=== PATIENT | female | born 1985 | race Caucasian/White ===

== ENCOUNTER 2019-04-24 18:51 | Emergency (ER) | payer OTHER ==
[~2019-04-24] VITALS: Ht 157.5 cm; Wt 75.9 kg
[2019-04-24 18:56] VITALS: Ht 157.5 cm; Wt 75.9 kg
[2019-04-24] MEDS ORDERED: ZITHROMAX TRI-500 MG PO (18:57)
[2019-04-24] MEDS ORDERED: TOPAMAX50 MG PO (18:58)
[2019-04-24] MEDS ORDERED: ADIPEX-P37.5 MG PO (18:58)
[2019-04-24] MEDS ORDERED: BUTALB-APAP-CA1 EACH PO (18:59)
[2019-04-24] MEDS ORDERED: AMBIEN10 MG PO (18:59)
[2019-04-24] MEDS ORDERED: PROZAC40 MG PO (18:59)
[2019-04-24 20:01] LABS: APPEARANCE CLEAR (CLEAR); BILIRUBIN NEGATIVE (NEGATIVE); COLOR YELLOW (YELLOW); GLUCOSE NEGATIVE (NEGATIVE); KETONE NEGATIVE (NEGATIVE); NITRITE NEGATIVE (NEGATIVE); PROTEIN NEGATIVE (NEGATIVE); UROBILINOGEN NORMAL (NORMAL)
[2019-04-24 20:02] LABS: BASOPHILS 0.2 % (0-2); EOSINOPHILS 0.9 % (0-7); HEMOGLOBIN 12.3 g/dL (12-16); IMMATURE GRANULOCYTES 0.3 % (0-5); LYMPHOCYTES 31.2 % (15-50); MCHC 34.2 g/dL (31.0-37.0); MONOCYTES 12.8 % (2-11); NEUTROPHILS 54.6 % (40-80); PLATELET COUNT 328 10x3/uL (130-400); RBC 4.39 10x6/uL (4.00-5.40); RDW 14.7 % (11.5-14.5)
[2019-04-24 20:09] LABS: ANION GAP 14.2 mmol/L (8-16); BACTERIA MODERATE /hpf (NEGATIVE); CALCIUM 8.9 mg/dL (8.5-10.1); CARBON DIOXIDE 22.3 mmol/L (21.0-32.0); CREATININE - SERUM 1.1 mg/dL (0.6-1.3); EPITHELIAL CELLS 0-5 /hpf (0-5); POTASSIUM - SERUM 3.5 mmol/L (3.5-5.1); RED CELLS - URINE NONE SEEN /hpf (0-5); WHITE CELLS - URINE 0-5 /hpf (NEGATIVE)
[2019-04-24 20:10] LABS: MUCUS <1+ /lpf (NONE SEEN)
[2019-04-24 20:23] LABS: ALBUMIN 3.7 g/dL (3.4-5.0); BILIRUBIN - TOTAL 0.48 mg/dL (0.2-1.3); PROTEIN - SERUM 7.8 g/dL (6.4-8.2); THYROID STIMULATING HORMONE 0.64 uIU/mL (0.36-3.74)
[2019-04-24 20:43] LABS: UDS - AMPHET POSITIVE QUAL (NEGATIVE); UDS - BARB POSITIVE QUAL (NEGATIVE); UDS - BENZO NEGATIVE QUAL (NEGATIVE); UDS - COCAINE NEGATIVE QUAL (NEGATIVE); UDS - OPIATE NEGATIVE QUAL (NEGATIVE); UDS - PCP NEGATIVE QUAL (NEGATIVE); UDS - THC NEGATIVE QUAL (NEGATIVE)
[2019-04-24] MEDS ORDERED: ATIVAN1 MG PO (22:03)
[2019-04-24 22:40] VITALS: BP 108/70
== END 2019-04-24 22:40 | disposition home or self-care (01) ==
LOC: D.ER 18:51
PROVIDERS: Family Medicine
DX: G25.9 Extrapyramidal and movement disorder, unspecified (principal)